=== PATIENT | female | born 1960 ===

== ENCOUNTER 2024-07-22 01:42 | Emergency (ER) | payer BC ==
[2024-07-22] MEDS: diphenhydrAMINE 50 MG/ML SDV IVPUSH ONE (02:03)
[2024-07-22] MEDS: methylPREDNISolone Sodium Succinate 125 MG/2 ML SDV IVPUSH ONE (02:03)
[2024-07-22] MEDS: Famotidine 20 MG/2 ML SDV IVPUSH ONE (02:04)
== END 2024-07-22 03:49 | disposition home or self-care (01) ==
LOC: MW.ED 01:42
DX: T78.3XXA Angioneurotic edema, initial encounter (principal); Z88.1 Allergy status to other antibiotic agents; Z88.0 Allergy status to penicillin; Z79.899 Other long term (current) drug therapy
CPT/HCPCS: 96374; 96375; 99283; J1200; J2919; J3490; 99284